=== PATIENT | female | born 2000 | race Caucasian/White ===

== ENCOUNTER 2023-11-12 20:12 | Emergency (ER) | payer OTHER, SELFPAY ==
[2023-11-12 20:44] VITALS: BP 121/74; PULSE 100; TEMP 38.8; O2SAT 96; BMI 46.2
--- NOTE | 2023-11-12 20:51 | XR_ITS ---
The [address] [address] Patient Name: NORBERTO ELIZABETH MRN: [id number] date: 2000 Sex: F Assigned Patient Location: ER Current Patient Location: ER Accession/Order Number: [id number] Exam Date: 11/12/2023 21:16 Report Date: 11/12/2023 21:52 At the request of: TENISHA BOONE Procedure: XR chest 1V CXR HISTORY: Shortness of breath. COMPARISON: None. TECHNIQUE: 1 view chest submitted for review. FINDINGS: Lines and tubes: None Lung volumes are adequately expanded. Bronchopulmonary markings are prominent. No pneumothorax. No effusion. The cardiac shadow measures within normal. Pulmonary vascularity is prominent. Osseous structures do not demonstrate any acute abnormality. XR/XR chest 1V IMPRESSION: Minimal prominence of interstitial markings in the lower lobes. Please correlate for pneumonia versus atelectasis. Electronically authenticated by: SUMAN TOM Date: 11/12/2023 21:52
--- NOTE | 2023-11-12 21:25 | ED.URI1 ---
HPI - URI/Sore Throat General Chief Complaint: Upper Respiratory Infection Stated Complaint: URTI COMPLAINTS Time Seen by Provider: 11/12/23 21:22 Source: patient Limitations: no limitations History of Present Illness HPI Narrative: presents complaining of cough and dyspnea. Cough is productive. Ill for past few days. Has a fever. more short of breath when coughing. Abdomen sore from coughing MD elicited complaint: Reports fever and cough Related Data Home Medications ?Medication ?Instructions ?Recorded ?Confirmed aripiprazole 10 mg tablet 10 mg PO QDAY 11/12/23 11/12/23 fluoxetine 20 mg capsule 40 mg PO QDAY 11/12/23 11/12/23 guanfacine 2 mg tablet 2 mg PO .qhs 11/12/23 11/12/23 topiramate 50 mg tablet 50 mg PO .qhs 11/12/23 11/12/23 Allergies Allergy/AdvReac Type Severity Reaction Status Date / Time No Known Drug Allergies Allergy Verified 11/12/23 20:41 Review of Systems ROS Status of ROS 10 or more systems reviewed and unremarkable except as noted in history and below Exam Constitutional Vital Signs, click to edit/add: Last Vital Signs Temp 101.9 F H 11/12/23 20:44 Pulse 90 11/12/23 22:13 Resp 18 11/12/23 22:13 BP 121/74 11/12/23 20:44 Pulse Ox 96 11/12/23 22:13 O2 Del Method Room Air 11/12/23 22:13 Common normals: no apparent distress, average body habitus, oriented x3, no limitations, healthy appearing, alert and well nourished [facility] Common normals: normocephalic and head/scalp atraumatic Respiratory Common normals: no retractions and no use of accessory muscles Other: mild rhonchi right chest Cardio Common normals: regular rate, regular rhythm, S1 normal heart sound and S2 normal heart sound GI Common normals: Normal to inspection, nondistended, normoactive bowel sounds present, soft to palpation and non-tender Extremity Common normals: normal to inspection and full ROM Neuro Common normals: oriented x3, moves all extremities and no focal motor deficits Psych Appearance: grossly normal Course Vital Signs Vital signs: Vital Signs Temperature 101.9 F H 11/12/23 20:44 Pulse Rate 100 H 11/12/23 20:44 Respiratory Rate 16 11/12/23 20:44 Blood Pressure 121/74 11/12/23 20:44 Pulse Oximetry 96 11/12/23 20:44 Oxygen Delivery Method Room Air 11/12/23 20:44 Temperature 101.9 F H 11/12/23 20:44 Pulse Rate 90 11/12/23 22:13 Respiratory Rate 18 11/12/23 22:13 Blood Pressure 121/74 11/12/23 20:44 Pulse Oximetry 96 11/12/23 22:13 Oxygen Delivery Method Room Air 11/12/23 22:13 MDM - URI/Sore Throat MDM Narrative Medical decision making narrative: patient presents with productive cough, dyspnea and fever. Has faint rhonchi right chest. cxray with ? pneumonia. COVID19 and influenza neg. Clinically suspect pneumonia given productive cough and fever in none smoker. Will plan to treat as CAP and have her follow up with her family doctor Lab Data Labs: Lab Results 11/12/23 11/12/23 Range/Units 20:55 21:57 WBC 6.2 (4.0-11.0) 10^3/uL RBC 4.68 (4.20-5.40) 10^6/uL Hgb 12.0 (12.0-16.0) g/dL Hct 37.5 (36.0-48.0) % MCV 80.1 L (81.0-99.0) fL MCH 25.6 L (26.7-34.0) pg MCHC 32.0 (29.9-35.2) g/dL RDW 13.3 (11.0-15.0) % Plt Count 260 (150-450) 10^3/uL MPV 9.7 (9.5-13.5) fL Neut % (Auto) 67.7 (43.0-75.0) % Lymph % (Auto) 20.2 L (20.5-60.0) % Curry % (Auto) 7.7 (1.7-12.0) % Eos % (Auto) 3.9 (0.9-7.0) % Baso % (Auto) 0.3 (0.2-2.0) % Neut # (Auto) 4.2 (1.4-6.5) 10^3/uL Lymph # (Auto) 1.3 (1.2-3.8) 10^3/uL Curry # (Auto) 0.5 (0.3-0.8) 10^3/uL Eos # (Auto) 0.2 (0.0-0.7) 10^3/uL Baso # (Auto) 0.0 (0.0-0.1) 10^3/uL Abs Immat Gran (auto) 0.01 (0.00-0.03) 10^3/uL Imm/Tot Granulo (auto) 0.2 (0.0-0.5) % Sodium 138 (136-145) mmol/L Potassium 3.8 (3.5-5.1) mmol/L Chloride 101 (98-107) mmol/L Carbon Dioxide 25.7 (21.0-32.0) mmol/L Anion Gap 15.1 BUN 12.0 (7.0-18.0) mg/dL Creatinine 0.76 (0.55-1.02) mg/dL Est GFR ( Amer) >60 (>=60) Est GFR (Non-Af Amer) >60 (>=60) BUN/Creatinine Ratio 15.8 Glucose 101 (74-106) mg/dL Lactate 0.7 (0.4-2.0) mmol/L Calcium 9.3 (8.5-10.1) mg/dL Influenza Type A Ag Negative Influenza Type B Ag Negative SARS-CoV-2 Ag (CV2AG) Negative (NEGATIVE) Imaging Data Chest x-ray: Radiologist's impression: ITS Impressions Chest X-Ray 11/12/23 20:51 IMPRESSION: Minimal prominence of interstitial markings in the lower lobes. Please correlate for pneumonia versus atelectasis. Electronically authenticated by: SUMAN TOM Date: 11/12/2023 21:52 Discharge Plan Discharge Stand Alone Forms: Portal Instructions Chief Complaint: Upper Respiratory Infection Clinical Impression: Pneumonia Patient Disposition: Home, Self-Care Prescriptions / Home Meds: No Action fluoxetine 20 mg capsule 40 mg PO QDAY aripiprazole 10 mg tablet 10 mg PO QDAY topiramate 50 mg tablet 50 mg PO .qhs guanfacine 2 mg tablet 2 mg PO .qhs Print Language: Kosovan Instructions: Community Acquired Pneumonia (ED) Additional Instructions: follow up with your family doctor next week Referrals: [facility] [Primary Care Provider] - 1 week Discharge Date/Time: 11/12/23 23:32
[2023-11-12 21:31] LABS: Influenza Virus A Antigen Negative; Influenza Virus B Antigen Negative; Internal Control Within Normal Limits; SARS-CoV-2 Ag NEGATIVE (NEGATIVE)
[2023-11-12] MEDS: 0.9 % SODIUM CHLORIDE 1,000 ML 999 ML IV (21:58)
[2023-11-12 22:13] VITALS: PULSE 90; O2SAT 96
[2023-11-12 22:13] LABS: Basophils Percent Auto 0.3 % (0.2-2.0); Eosinophils Absolute Auto 0.2 10^3/uL (0.0-0.7); Eosinophils Percent Auto 3.9 % (0.9-7.0); Hematocrit 37.5 % (36.0-48.0); Immature Granulocytes Abs Auto 0.01 10^3/uL (0.00-0.03); Immature Granulocytes Pct Auto 0.2 % (0.0-0.5); Lymphocytes Absolute Auto 1.3 10^3/uL (1.2-3.8); Lymphocytes Percent Auto 20.2 % (20.5-60.0); Mean Corpuscular Hemoglobin 25.6 pg (26.7-34.0); Mean Corpuscular Volume 80.1 fL (81.0-99.0); Mean Platelet Volume 9.7 fL (9.5-13.5); Monocytes Absolute Auto 0.5 10^3/uL (0.3-0.8); Monocytes Percent Auto 7.7 % (1.7-12.0); Neutrophils Absolute Auto 4.2 10^3/uL (1.4-6.5); Neutrophils Percent Auto 67.7 % (43.0-75.0); Platelet Count 260 10^3/uL (150-450); Red Blood Count 4.68 10^6/uL (4.20-5.40); Red Cell Distribution Width 13.3 % (11.0-15.0); White Blood Count 6.2 10^3/uL (4.0-11.0)
[2023-11-12] MEDS: ALBUTEROL SULFATE 2.5 MG/3 ML VIAL NEB IH (22:13)
[2023-11-12 22:25] LABS: Anion Gap 15.1; BUN Creatinine Ratio 15.8; Calcium 9.3 mg/dL (8.5-10.1); Carbon Dioxide 25.7 mmol/L (21.0-32.0); Chloride 101 mmol/L (98-107); Estimated GFR (African America >60 (>=60); Estimated GFR (Non-African Ame >60 (>=60); Glucose 101 mg/dL (74-106); Potassium 3.8 mmol/L (3.5-5.1); Sodium 138 mmol/L (136-145)
[2023-11-12 22:30] LABS: Lactate/Lactic Acid 0.7 mmol/L (0.4-2.0)
[2023-11-12] MEDS: AZITHROMYCIN 250 MG TABLET 500 MG PO (22:54)
[2023-11-12] MEDS: CEFTRIAXONE 1,000 MG in 0.9 % SODIUM CHLORIDE 50 ML 100 MG IV (22:55)
== END 2023-11-12 23:32 | disposition home or self-care (01) ==
PROVIDERS: Emergency Provider Internal Medicine
DX: J18.9 Pneumonia, unspecified organism (principal); Z79.899 Other long term (current) drug therapy; Z20.822 Contact with and (suspected) exposure to COVID-19
CPT/HCPCS: 36415; 71045; 80048; 83605; 85025; 87804; 87811; 94640; 96365; 99285

== ENCOUNTER 2024-01-24 20:52 | Emergency (ER) | payer OTHER, SELFPAY ==
[2024-01-24 21:03] VITALS: BP 129/88; PULSE 107; TEMP 37.3; O2SAT 97; BMI 45.6
--- OUTSIDE RECORDS SUMMARY | 2024-01-24 21:05 | XMS_ITS | CCD ---
Author Organization [facility] Care Team Providers Care Drop Wire Aliner Name Role Phone NO PCP, NO PCP Primary Care Unavailable NO PCP, NO PCP Primary Care Unavailable SHELLEY CAMARILLO Attending Unavailable NO PCP, NO PCP Primary Care Unavailable NO PCP, NO PCP Primary Care Unavailable JOSE BRANTLEY Attending Unavailable NO PCP, NO PCP Primary Care Unavailable ATIF SEGURA Attending Unavailab ATIF Griffin Attending Unavailab ATIF Griffin Referring Unavailab le NO PCP, NO PCP Primary Care Unavailable Odessa SOLANO, Geronimo Dewitt Attending Unavailable Pavithra Kirby Attending Unavailable Odessa SOLANO, Geronimo Dewitt Attending Unavailable Pavithra Kirby Attending Unavailable Pavithra Kirby Attending Unavailable Odessa SOLANO, Geronimo Dewitt Attending Unavailable Pavithra Kirby Attending Unavailable Odessa SOLANO, Geronimo Dewitt Attending Unavailable Pavithra Kirby Attending Unavailable Odessa SOLANO, Geronimo Dewitt Attending Unavailable Pavithra Kirby Attending Unavailable Pavithra Kirby Attending Unavailable Odessa SOLANO, Geronimo Dewitt Attending Unavailable Pavithra Kirby Attending Unavailable Pavithra Kirby Attending Unavailable Odessa SOLANO, Geronimo Dewitt Attending Unavailable Pavithra Kirby Attending Unavailable Pavithra Kirby Attending Unavailable Pavithra Kirby Attending Unavailable Odessa SOLANO, Geronimo Dewitt Attending Unavailable Odessa SOLANO, Geronimo Dewitt Attending Unavailable Problems Active Problems Problem Classification Problem Date Documented Da te Episodic/Chronic Anxiety disorders (2 sources) Anxiety disorder, unspecified; Translations: [Mental health problem] Onset: 09-07-2023 Chronic Headache; including migraine (1 source) Headache Onset: 11-09-2023 Episodic Other connective tissue disease (1 source) Foot pain Onset: 12-09-2023 Episodic Other connective tissue disease (1 source) Myalgia, unspecified site; Translations: [Myalgia, unspecified site] Onset: 11-09-2023 Episodic Other female genital disorders (1 source) Abnormal uterine and vaginal bleeding, unspecified; Translations: [Abnormal uterine and vaginal bleeding, unspecified] Onset: 08-24-2023 Chronic Other female genital disorders (1 source) Vaginal bleeding Onset: 08-24-2023 Chronic Residual codes; unclassified (1 source) Pain, unspecified; Translations: [Pain, unspecified] Onset: 12-09-2023 Episodic Sprains and strains (1 source) Strain of unspecified muscle and tendon at ankle and foot level, left foot, initial encounter; Translations: [Strain of unspecified muscle and tendon at ankle and foot level, left foot, initial encounter] Onset: 12-09-2023 Episodic Unclassified (1 source) Generalized Body Aches Onset: 11-09-2023 Unclassified (1 source) Mental Health Issue Onset: 09-07-2023 Past or Other Problems Problem Classification Problem Date Documented Da te Episodic/Chronic Nausea and vomiting (2 sources) Nausea with vomiting, unspecified; Translations: [Vomiting] Onset: 08-26-2023 Episodic Results Test Name Value Interpretation Reference Range Facility HCG ( test) Ql (U)o n 11-09-2023 Beta HCG ( test) Ql (U) Negative Normal NEG [facility] Comment on above: Performed By: #### 2 106-3 #### [facility] ([id number]) [address] [place] [address] 70343 URN MACROSCOPIC NURon 2023 BILIRUBIN JAZMYN Negative Normal NEG [facility] Comment on above: Performed By: #### N UM #### [facility] ([id number]) [address] [place] [address] 68065 BLOOD/HGB JAZMYN Negative Normal NEG [facility] Comment on above: Performed By: #### N UM #### [facility] ([id number]) [address] [place] [address] 03254 GLUCOSE JAZMYN Negative Normal NEG [facility] Comment on above: Performed By: #### N UM #### [facility] ([id number]) [address] [place] [address] [place] [address] KETONES JAZMYN Negative Normal NEG [facility] Comment on above: Performed By: #### N UM #### [facility] ([id number]) [address] [place] [address] [place] [address] LEUKOCYTE ESTERASE JAZMYN Negative Normal NEG [facility] Comment on above: Performed By: #### N UM #### [facility] ([id number]) [address] [place] [address] 73524 NITRITE JAZMYN Negative Normal NEG [facility] Comment on above: Performed By: #### N UM #### [facility] ([id number]) [address] [place] [address] 14463 PH JAZMYN 8.5 Normal 5.0-8.5 [facility] Comment on above: Performed By: #### N UM #### [facility] ([id number]) [address] [place] [address] 12459 PROTEIN JAZMYN Negative Normal NEG [facility] Comment on above: Performed By: #### N UM #### [facility] ([id number]) [address] [place] [address] 08685 SPECIFIC GRAVITY JAZMYN 1.020 Normal 1.003-1.035 [facility] Comment on above: Performed By: #### N UM #### [facility] ([id number]) [address] [place] [address] 87973 UROBILINOGEN JAZMYN 0.2 eu/dL Normal <1.1 [facility] Comment on above: Performed By: #### N UM #### [facility] ([id number]) [address] [place] [address] [place] [address] BASIC METABOLIC PANLon 08-26 Anion gap [Moles/Vol] 9 mmol/L Normal 5-15 [facility] Comment on above: Performed By: #### B MP #### [facility] ([id number]) [address] [place] [address] 94575 Calcium [Mass/Vol] 8.5 mg/dL Normal 8.5-10.5 [facility] Comment on above: Performed By: #### B MP #### [facility] ([id number]) [address] [place] [address] 37605 Chloride [Moles/Vol] 102 mmol/L Normal 98-109 [facility] Comment on above: Performed By: #### B MP #### [facility] ([id number]) [address] [place] [address] 84941 CO2 [Moles/Vol] 25 mmol/L Normal 22-32 [facility] Comment on above: Performed By: #### B MP #### [facility] ([id number]) [address] [place] [address] 25212 Creatinine [Mass/Vol] 0.70 mg/dL Normal 0.40-1.00 [facility] Comment on above: Result Comment: METH OD TRACEABLE TO IDMS STANDARD Performed By: #### B MP #### [facility] ([id number]) [address] [place] [address] 87228 eGFR (CKD-EPI) NON-RACE DEPENDENT >90 Normal >59 [facility] Comment on above: Result Comment: Reported eGFR is based on the CKD-EPI 2020 equation that does not use a race coefficient. Performed By: #### B MP #### [facility] ([id number]) [address] [place] [address] 59508 Glucose [Mass/Vol] 128 mg/dL High 65-99 [facility] Comment on above: Performed By: #### B MP #### [facility] ([id number]) [address] [place] [address] 34167 Potassium [Moles/Vol] 3.8 mmol/L Normal 3.5-5.0 [facility] Comment on above: Performed By: #### B MP #### [facility] ([id number]) [address] [place] [address] 57654 Sodium [Moles/Vol] 136 mmol/L Normal 134-146 [facility] Comment on above: Performed By: #### B MP #### [facility] ([id number]) [address] [place] [address] 25593 Urea nitrogen [Mass/Vol] 13 mg/dL Normal 5-23 [facility] Comment on above: Performed By: #### B MP #### [facility] ([id number]) [address] [place] [address] 92009 DRUG SCREEN, URINEon 024 AMPHETAMINE/METHAMP Negative Normal NEG [facility] Comment on above: Result Comment: AMPH /METH screening cut off = 1000 ng/mL Performed By: #### D PENN #### [facility] ([id number]) [address] [place] [address] 55169 BARBITURATES Negative Normal NEG [facility] Comment on above: Result Comment: Yuliana iturates screening cut off value = 200 ng/mL Performed By: #### D PENN #### [facility] ([id number]) [address] [place] [address] 91358 BENZODIAZEPINES Negative Normal NEG [facility] Comment on above: Result Comment: Phuc odiazepines screening cut off value = 200 ng/mL Performed By: #### D PENN #### [facility] ([id number]) [address] [place] [address] 32074 CANNABINOIDS Positive Abnormal NEG [facility] Comment on above: Result Comment: Conf irmation available upon request. Cannabinoids/THC screening cut off value = 50 ng/mL Performed By: #### D PENN #### [facility] ([id number]) [address] [place] [address] 81228 COCAINE METABOLITE Negative Normal NEG [facility] Comment on above: Result Comment: Coca ine screening cut off value = 300 ng/mL Performed By: #### D PENN #### [facility] ([id number]) [address] [place] [address] 14055 ECSTASY Negative Normal NEG [facility] Comment on above: Result Comment: Ecst asy screening cut off value = 500 ng/mL This report is intended for use in clinical monitoring or management of patients. Performed By: #### D PENN #### [facility] ([id number]) [address] [place] [address] 07466 METHADONE Negative Normal [facility] Comment on above: Result Comment: Meth adone screening cut off value = 300 ng/mL. Performed By: #### D PENN #### [facility] ([id number]) [address] [place] [address] 40356 OPIATES Negative Normal [facility] Comment on above: Result Comment: Opia mayte screening cut off value = 300 ng/mL NOTE: This test is used for the detection of codeine, hydrocodone (>1000 ng/mL), morphine and hydromorphone (>900 ng/mL) in urine. Performed By: #### D PENN #### [facility] ([id number]) [address] [place] [address] 63355 OXYCODONE Negative Normal [facility] Comment on above: Result Comment: Oxyc odone screening cut off value = 300 ng/mL NOTE: This test is used for the detection of oxycodone and oxymorphone in urine. Performed By: #### D PENN #### [facility] ([id number]) [address] [place], [place] [id number] PHENCYCLIDINE Negative Normal NEG [facility] Comment on above: Result Comment: Phen cyclidine screening cut off value = 25 ng/mL Performed By: #### D PENN #### [facility] ([id number]) [address] [place] [address] HCG ( test) Ql (U)o n 08-26-2023 Beta HCG ( test) Ql (U) Negative Normal NEG [facility] Comment on above: Performed By: #### 2 106-3 #### [facility] ([id number]) [address] [place] [address] SARS/FLU A+B/RSV by NAAT/Mol ecularon 08-26-2023 SARS/FLU A+B/RSV by NAAT/Molecular FLU A PCR Negative (qualifier value) FLU B PCR Negative (qualifier value) RSV by PCR Negative (qualifier value) SARS CoV 2 Not detected (qualifier value) NOTE The Xpert Xpress SARS-CoV-2/Flu/RSV Plus test is a rapid, multiplexed real-time RT-PCR test intended for the simultaneous qualitative detection and differentiation of SARS-CoV-2, influenza A, influenza B and respiratory syncytial virus (RSV) viral RNA from individuals suspected of respiratory viral infection consistent with COVID-19 by their healthcare provider. This test has not been validated in asymptomatic patients. The Xpert Xpress SARS-CoV-2 test is intended for use by qualified and trained operators who are performing tests using either [employer] or [employer] systems and is limited to laboratories that meet the CLIA requirements to perform high and moderate complexity tests. The Xpert Xpress SARS-CoV-2/Flu/RSV Plus is only for use under the Food and Drug Administration's Emergency Use Authorization. Results are for the simultaneous detection and differentiation of SARS-CoV-2, influenza A, influenza B and RSV nucleic acids in clinical specimens. SARS-CoV-2, influenza A, influenza B and RSV RNA identified by this test are generally detectable in upper respiratory samples during the acute phase of infection. Positive results are indicative of the presence of the identified virus, but do not rule out bacterial infection or co-infection with other pathogens not detected by this test. Clinical correlation with patient history and other diagnostic information is necessary to determine patient infection status. The agent detected may not be the definite cause of disease. Negative results do not preclude SARS-CoV-2, influenza A, influenza B and RSV infection and should not be used as the sole basis for treatment or other patient management decisions. Negative results must be combined with clinical observations, patient history and epidemiological information. An Invalid result may occur with specimen-associated inhibition unable to be resolved with specimen repeat. Fact Sheet for Healthcare Providers: https://www.fda.gov/m edia/370875/download Fact Sheet for Patients: https://www.fda.gov/m edia/288908/download Normal [facility] Comment on above: Performed By: #### C OVFLR #### [facility] ([id number]) [address] [place] [address] 12892 URN MACROSCOPIC NURon 2023 BILIRUBIN JAZMYN Negative Normal [facility] Comment on above: Performed By: #### N UM #### [facility] ([id number]) [address] [place] [address] 36307 BLOOD/HGB JAZMYN Trace Abnormal [facility] Comment on above: Performed By: #### N UM #### [facility] ([id number]) [address] [place] [address] 67091 GLUCOSE JAZMYN Negative Normal NEG [facility] Comment on above: Performed By: #### N UM #### [facility] ([id number]) [address] [place] [address] 94102 KETONES JAZMYN 15 mg/dL Abnormal NEG [facility] Comment on above: Performed By: #### N UM #### [facility] ([id number]) [address] [place] [address] 14059 LEUKOCYTE ESTERASE JAZMYN Negative Normal [facility] Comment on above: Performed By: #### N UM #### [facility] ([id number]) [address] [place] [address] 39326 NITRITE JAZMYN Negative Normal NEG [facility] Comment on above: Performed By: #### N UM #### [facility] ([id number]) [address] [place] [address] 24812 PH JZAMYN 7.0 Normal 5.0-8.5 [facility] Comment on above: Performed By: #### N UM #### [facility] ([id number]) [address] [place] [address] 85292 PROTEIN JAZMYN 100 mg/dL Abnormal NEG [facility] Comment on above: Performed By: #### N UM #### [facility] ([id number]) [address] [place] [address] 35150 SPECIFIC GRAVITY JAZMYN 1.020 Normal 1.003-1.035 [facility] Comment on above: Performed By: #### N UM #### [facility] ([id number]) [address] [place] [address] 72147 UROBILINOGEN JAZMYN 1.0 eu/dL Normal <1.1 [facility] Comment on above: Performed By: #### N UM #### [facility] ([id number]) [address] [place] [address] 50225 BASIC METABOLIC PANLon 08-24 Anion gap [Moles/Vol] 7 mmol/L Normal 5-15 [facility] Comment on above: Performed By: #### C BCA, BMP #### [facility] ([id number]) [address] [place] [address] 89420 Calcium [Mass/Vol] 8.7 mg/dL Normal 8.5-10.5 [facility] Comment on above: Performed By: #### C BCA, BMP #### [facility] ([id number]) [address] [place] [address] 15056 Chloride [Moles/Vol] 103 mmol/L Normal 98-109 [facility] Comment on above: Performed By: #### C RADHA, BMP #### [facility] ([id number]) [address] [place] [address] 51523 CO2 [Moles/Vol] 24 mmol/L Normal 22-32 [facility] Comment on above: Performed By: #### C RADHA, BMP #### [facility] ([id number]) [address] [place] [address] 21852 Creatinine [Mass/Vol] 0.53 mg/dL Normal 0.40-1.00 [facility] Comment on above: Result Comment: METH OD TRACEABLE TO IDMS STANDARD Performed By: #### C RADHA, BMP #### [facility] ([id number]) [address] [place] [address] 73217 eGFR (CKD-EPI) NON-RACE DEPENDENT >90 Normal >59 [facility] Comment on above: Result Comment: Reported eGFR is based on the CKD-EPI 2020 equation that does not use a race coefficient. Performed By: #### C RADHA, BMP #### [facility] ([id number]) [address] [place] [address] 91294 Glucose [Mass/Vol] 87 mg/dL Normal 65-99 [facility] Comment on above: Performed By: #### C RADHA, BMP #### [facility] ([id number]) [address] [place] [address] 28970 Potassium [Moles/Vol] 3.5 mmol/L Normal 3.5-5.0 [facility] Comment on above: Performed By: #### C BCA, BMP #### [facility] ([id number]) [address] [place] [address] 32323 Sodium [Moles/Vol] 134 mmol/L Normal 134-146 [facility] Comment on above: Performed By: #### C BCA, BMP #### [facility] ([id number]) [address] [place] [address] 56620 Urea nitrogen [Mass/Vol] 12 mg/dL Normal 5-23 [facility] Comment on above: Performed By: #### C RADHA, BMP #### [facility] ([id number]) [address] [place] [address] 09786 CBC AND AUTO DIFFon 08-24-19 24 ABSOLUTE BASOPHIL 0.0 X10E9/L Normal 0.0-0.2 [facility] Comment on above: Performed By: #### C RADHA, BMP #### [facility] ([id number]) [address] [place] [address] 88178 ABSOLUTE NEUTROPHIL 4.2 X10E9/L Normal 1.5-6.6 [facility] Comment on above: Performed By: #### Leny GARCIA, BMP #### [facility] ([id number]) [address] [place] [address] 70772 Basophils/100 WBC (Bld) 0.6 % Normal [facility] Comment on above: Performed By: #### Leny GARCIA, BMP #### [facility] ([id number]) [address] [place] [address] 72406 Eosinophils (Bld) [#/Vol] 0.1 10*3/uL Normal 0.0-0.4 [facility] Comment on above: Performed By: #### Leny GARCIA, BMP #### [facility] ([id number]) [address] [place] [address] 33146 Eosinophils/100 WBC (Bld) 2.1 % Normal [facility] Comment on above: Performed By: #### Leny GARCIA, BMP #### [facility] ([id number]) [address] [place] [address] 29541 Erythrocyte distribution width (RBC) [Ratio] 14.4 % Normal 11.5-15.0 [facility] Comment on above: Performed By: #### C BCA, BMP #### [facility] ([id number]) [address] [place] [address] 19476 Hematocrit (Bld) [Volume fraction] 38.0 % Normal 35-47 [facility] Comment on above: Performed By: #### C BCA, BMP #### [facility] ([id number]) [address] [place] [address] 38406 Hemoglobin (Bld) [Mass/Vol] 13.3 g/dL Normal 11.7-15.5 [facility] Comment on above: Performed By: #### C RADHA, BMP #### [facility] ([id number]) [address] [place] [address] 62425 Lymphocytes (Bld) [#/Vol] 1.6 10*3/uL Normal 1.0-3.5 [facility] Comment on above: Performed By: #### C RADHA, BMP #### [facility] ([id number]) [address] [place] [address] 02346 Lymphocytes/100 WBC (Bld) 24.6 % Normal [facility] Comment on above: Performed By: #### C RADHA, BMP #### [facility] ([id number]) [address] [place] [address] 02441 MCH (RBC) [Entitic mass] 26.7 pg Low 27-34 [facility] Comment on above: Performed By: #### C BCA, BMP #### [facility] ([id number]) [address] [place] [address] 44904 MCHC (RBC) [Mass/Vol] 35.1 g/dL Normal 32-36 [facility] Comment on above: Performed By: #### C BCA, BMP #### [facility] ([id number]) [address] [place] [address] 42616 MCV (RBC) [Entitic vol] 76 fL Low 80-100 [facility] Comment on above: Performed By: #### C RADHA, BMP #### [facility] ([id number]) [address] [place] [address] 51965 Monocytes (Bld) [#/Vol] 0.4 10*3/uL Normal 0-0.9 [facility] Comment on above: Performed By: #### C RADHA, BMP #### [facility] ([id number]) [address] [place] [address] 54077 Monocytes/100 WBC (Bld) 6.8 % Normal [facility] Comment on above: Performed By: #### C RADHA, BMP #### [facility] ([id number]) [address] [place] [address] 92058 Neutrophils/100 WBC (Bld) 65.9 % Normal [facility] Comment on above: Performed By: #### C RADHA, BMP #### [facility] ([id number]) [address] [place] [address] 97488 Platelet mean volume (Bld) [Entitic vol] 8.0 fL Normal 7-12 [facility] Comment on above: Performed By: #### C RADHA, BMP #### [facility] ([id number]) [address] [place] [address] 93035 Platelets (Bld) [#/Vol] 291 10*3/uL Normal 150-450 [facility] Comment on above: Performed By: #### C RADHA, BMP #### [facility] ([id number]) [address] [place] [address] 78525 RBC COUNT 4.99 X10E12/L Normal 3.80-5.20 [facility] Comment on above: Performed By: #### C RADHA, BMP #### [facility] ([id number]) [address] [place] [address] 87621 WBC (Bld) [#/Vol] 6.4 10*3/uL Normal 4.0-11.0 [facility] Comment on above: Performed By: #### C BCA, BMP #### [facility] ([id number]) [address] [place] [address] 53660 HCG ( test) Ql (U)o n 08-24-2023 Beta HCG ( test) Ql (U) Negative Normal NEG [facility] Comment on above: Performed By: #### 2 106-3 #### [facility] ([id number]) [address] [place] [address] 64776 URN MACROSCOPIC NURon 2023 BILIRUBIN JAZMYN Negative Normal [facility] Comment on above: Performed By: #### N UM #### [facility] ([id number]) [address] [place] [address] 26155 BLOOD/HGB JAZMYN Trace Abnormal NEG [facility] Comment on above: Performed By: #### N UM #### [facility] ([id number]) [address] [place] [address] 69940 GLUCOSE JAZMYN Negative Normal [facility] Comment on above: Performed By: #### N UM #### [facility] ([id number]) [address] [place] [address] 63011 KETONES JAZMYN Negative Normal NEG [facility] Comment on above: Performed By: #### N UM #### [facility] ([id number]) [address] [place] [address] 54725 LEUKOCYTE ESTERASE JAZMYN Negative Normal [facility] Comment on above: Performed By: #### N UM #### [facility] ([id number]) [address] [place] [address] 11621 NITRITE JAZMYN Negative Normal [facility] Comment on above: Performed By: #### N UM #### [facility] ([id number]) [address] [place] [address] 44573 PH JAZMYN 6.0 Normal 5.0-8.5 [facility] Comment on above: Performed By: #### N UM #### [facility] ([id number]) [address] [place] [address] 22746 PROTEIN JAZMYN Trace Abnormal NEG [facility] Comment on above: Performed By: #### N UM #### [facility] ([id number]) [address] [place] [address] 15639 SPECIFIC GRAVITY JAZMYN 1.025 Normal 1.003-1.035 [facility] Comment on above: Performed By: #### N UM #### [facility] ([id number]) [address] [place] [address] 30009 UROBILINOGEN JAZMYN 0.2 eu/dL Normal <1.1 [facility] Comment on above: Performed By: #### N UM #### [facility] ([id number]) [address] [place] [address] 70973 Encounters Encounter Date Encounter Type Care Provider Facility Start: 02-20-2024 ambulatory Pavithra Emerine HOURLY CAREGIVER Fac ility:[facility] Start: 02-06-2024 ambulatory Geronimo Saxena MD Facility:[facility] Start: 01-30-2024 ambulatory Pavithra Emerine HOURLY CAREGIVER Fac ility:[facility] Start: 12-12-2023 ambulatory Pavithra Emerine HOURLY CAREGIVER Fac ility:[facility] Start: 12-09-2023 End: 12-10-2023 Emergency department patient visit ATIF SEGURA [facility] Start: 11-25-2023 End: 11-25-2023 ambulatory Geronimo Saxena MD Facility:[facility] Start: 11-09-2023 End: 11-09-2023 Emergency department patient visit NO PCP NO PCP [facility] Start: 11-08-2023 End: 11-08-2023 ambulatory Pavithra Emerine HOURLY CAREGIVER Facility:[facility] Start: 10-14-2023 End: 10-14-2023 ambulatory Geronimo Saxena MD Facility:[facility] Start: 10-03-2023 End: 10-03-2023 ambulatory Pavithra Emerine [employer]GIVER Facility:[facility] Start: 09-07-2023 End: 09-07-2023 Emergency department patient visit NO PCP NO PCP [facility] Start: 08-26-2023 End: 08-27-2023 Emergency department patient visit NO PCP NO PCP [facility] Start: 08-25-2023 ambulatory Geronimo Saxena MD Facility:[facility] Start: 08-24-2023 End: 08-24-2023 Emergency department patient visit NO PCP NO PCP [facility] Start: 08-01-2023 End: 08-01-2023 ambulatory Pavithra Emerine HOU[employer] C[employer]GIVER Facility:[facility] Start: 06-24-2023 End: 06-24-2023 ambulatory Geronimo Saxena MD Facility:[facility] Start: 05-25-2023 ambulatory Geronimo Saxena MD Facility:[facility] Start: 05-24-2023 End: 05-24-2023 ambulatory Pavithra Emerine HOU[employer]Y C[employer]GIVER Facility:[facility] Start: 05-02-2023 ambulatory Pavithra Emerine HOURLY CAREGIVER Fac ility:[facility] Start: 04-25-2023 End: 04-25-2023 ambulatory Geronimo Saxena MD Facility:[facility] Start: 04-11-2023 End: 04-11-2023 ambulatory Pavithra Emerine HOU[employer]Y CAREGIVER Facility:[facility] Start: 03-15-2023 End: 03-15-2023 ambulatory Geronimo Saxena MD Facility:[facility] Start: 03-07-2023 End: 03-07-2023 ambulatory Pavithra Emerine HOU[employer]Y C[employer]GIVER Facility:[facility] Start: 02-14-2023 ambulatory Pavithra Emerine HOU[employer]Y CAREGIVER Fac ility:[facility] Start: 01-18-2023 End: 01-18-2023 ambulatory Pavithra Emerine [employer] C[employer]GIVER Facility:[facility] Start: 01-12-2023 End: 01-12-2023 ambulatory Geronimo Saxena MD Facility:[facility] Payers Date Payer Category Payer Unknown 2020 Medicaid [id number] 2000 Unknown [id number] 2.16.8 [id number] 2000 Unknown [id number] 2.16.8 40.1.525329.3.579.2.128 2000 Unknown [id number] 2.16.8 40.1.037367.3.579.2.1285 2000 Unknown [id number] 2.16.8 40.1.412368.3.579.2.1285 2000 Unknown [id number] 2.16.8 40.1.275021.3.579.2.1285 2000 Unknown [id number] 2.16.8 40.1.153149.3.579.2.1286 2000 Unknown [id number] 2.16. 840.1.075367.3.579.2. 2000 Unknown [id number] 2.16. 840.1.341771.3.579.2. 2000 Unknown [id number] 2.16. 840.1.690594.3.579.2. 2000 Unknown [id number] 2.16. 840.1.274748.3.579.2.196 2000 Unknown [id number] 2.16. 840.1.097098.3.579.2.196 2000 Unknown [id number] 2.16. 840.1.156769.3.579.2.196 2000 Unknown [id number] 2.16. 840.1.648404.3.579.2.196 2000 Unknown [id number] 2.16. 840.1.818870.3.579.2.196 2000 Unknown [id number] 2.16. 840.1.934989.3.579.2.196 2000 Unknown [id number] 2.16. 840.1.396034.3.579.2.196 2000 Unknown [id number] 2.16. 840.1.220146.3.579.2. 2000 Unknown [id number] 2.16. 840.1.528447.3.579.2.196 2000 Unknown [id number] 2.16. 840.1.689304.3.579.2.196 2000 Unknown [id number] 2.16. 840.1.634046.3.579.2. 2000 Unknown [id number] 2.16. 840.1.534924.3.579.2. 2000 Unknown [id number] 2.16. 840.1.205408.3.579.2.196 2000 Unknown [id number] 2.16. 840.1.319446.3.579.2.196 2000 Unknown [id number] 2.16. 840.1.816697.3.579.2.196 2000 Unknown [id number] 2.16. 840.1.126156.3.579.2. 2000 Unknown [id number] 2.16. 840.1.531329.3.579.2.196 2000 Unknown [id number] 2.16. 840.1.945048.3.579.2. Clinical Note 12-09-2023 Note Date & Type Note Facility 12-09-2023 Note XR FOOT LT MIN 3 VWS Procedure: Left foot radiographs performed Number of views:3 History:Pain Comparison:None Findings: There is no fracture, dislocation, or destructive lesion. Impression: No acute findings. Finalized by Tabitha Baker DO on 12/09/2023 12:33 PM [facility] Summary Purpose Family History No Family History Records FoundNo Family History Records Found Advance Directives No Advanced Directives Records FoundNo Advanced Directives Records Found Additional Source Comments INFORMATION SOURCE (unrecogn ized section and content) DATE CREATED AUTHOR 12/10/2023 [facility] DATE CREATED AUTHOR AUTHOR'S FEMI MENDOSA 01/04/2024 [facility] FOR RECORDS PERTAINING TO PATIENTS WHO ARE OR HAVE BEEN ENROLLED IN A CHEMICAL DEPENDENCY/SUBSTANCEABUSE PROGRAM, SOME INFORMATION MAY BE OMITTED. This clinical summary was aggregated from multiple sources. Caution should be exercised in using it in the provision of clinical care. This summary normalizes information from multiple sources, and as a consequence, information in this document may materially change the coding, format and clinical context of patient data. In addition, data may be omitted in some cases. CLINICAL DECISIONS SHOULD BE BASED ON THE PRIMARY CLINICAL RECORDS. [facility]. provides no warranty or guarantee of the accuracy or completeness of information in this document.
--- NOTE | 2024-01-24 21:18 | XR_ITS ---
The [address] [address] Patient Name: NORBERTO ELIZABETH MRN: [id number] date: 2000 Sex: F Assigned Patient Location: ER Current Patient Location: ER Accession/Order Number: [id number] Exam Date: 01/24/2024 21:24 Report Date: 01/24/2024 22:22 At the request of: AUDIE BHATT Procedure: XR chest 2V EXAM: XR chest 2V HISTORY: cough COMPARISON: None. TECHNIQUE: Frontal and lateral views of the chest. FINDINGS: No focal consolidations or pleural effusions. Cardiomediastinal silhouette is unremarkable. Visualized osseous structures are unremarkable. XR/XR chest 2V IMPRESSION: No acute disease. Electronically authenticated by: GIOVANI HEATH Date: 01/24/2024 22:22
--- NOTE | 2024-01-24 22:41 | ED.GENADUL1 ---
HPI HPI - General Adult General Chief complaint: Upper Respiratory Infection Stated complaint: Cough Time Seen by Provider: 01/24/24 21:17 Source: patient Mode of arrival: walk-in Limitations: no limitations History of Present Illness HPI narrative: 23-year-old female to the emergency department chief complaint of nasal congestion, cough, sore throat. Symptoms began 2 days ago. She reports last time this happened she had pneumonia. She denies . Related Data Home Medications ?Medication ?Instructions ?Recorded ?Confirmed aripiprazole 10 mg tablet 10 mg PO QDAY 11/12/23 11/12/23 fluoxetine 20 mg capsule 40 mg PO QDAY 11/12/23 11/12/23 guanfacine 2 mg tablet 2 mg PO .qhs 11/12/23 11/12/23 topiramate 50 mg tablet 50 mg PO .qhs 11/12/23 11/12/23 Previous Rx's ?Medication ?Instructions ?Recorded yemumggvlspwpoy-ckktnaxidtdnixb-RX 5 ml PO Q6H PRN cold symptoms #118 01/24/24 2 mg-30 mg-10 mg/5 mL oral syrup mL (Bromfed DM) Allergies Allergy/AdvReac Type Severity Reaction Status Date / Time No Known Drug Allergies Allergy Verified 11/12/23 20:41 Opioid HPI Opioid Management Most Recent Opioid Data: No Data to Display Review of Systems ROS Status of ROS 10 or more systems reviewed and unremarkable except as noted in history and below Exam Narrative Exam Narrative: VITALS: I have reviewed the triage vital signs. GENERAL: Well developed, well appearing adult in no acute distress. NEURO: Alert and oriented. Moves all extremities. Face is symmetric and expressive. EYES: PERRL. No scleral icterus or conjunctival injection. No discharge. HENT: Normocephalic, atraumatic. Hearing is grossly intact. Nares grossly patent and without discharge. Mucous membranes moist. NECK: No JVD. Patient moves neck without restriction. CARDIO: Rhythm regular. Normal rate. No murmur, rub, or gallop. Pulses equal bilaterally in the upper and lower extremity. No lower extremity edema. PULM: Lungs clear to auscultation in all helms. No wheezes, rales, or rhonchi. No conversational dyspnea. No splinting, stridor, or accessory muscle use. GI/: Abdomen is soft and non-tender. Normoactive bowel sounds. EXTREMITIES: Symmetric muscle bulk. No joint swelling. No clubbing, cyanosis, or deformity. SKIN: Warm and dry. Normal turgor. No rash or lesions appreciated. PSYCH: Mood, affect, and interaction is appropriate to the setting. Constitutional Vital Signs, click to edit/add: Last Vital Signs Temp 99.2 F 01/24/24 21:03 Pulse 107 H 01/24/24 21:03 Resp 17 01/24/24 21:03 BP 129/88 01/24/24 21:03 Pulse Ox 97 01/24/24 21:03 O2 Del Method Room Air 01/24/24 21:03 Course Vital Signs Vital signs: Vital Signs Temperature 99.2 F 01/24/24 21:03 Pulse Rate 107 H 01/24/24 21:03 Respiratory Rate 17 01/24/24 21:03 Blood Pressure 129/88 01/24/24 21:03 Pulse Oximetry 97 01/24/24 21:03 Oxygen Delivery Method Room Air 01/24/24 21:03 Temperature 99.2 F 01/24/24 21:03 Pulse Rate 107 H 01/24/24 21:03 Respiratory Rate 17 01/24/24 21:03 Blood Pressure 129/88 01/24/24 21:03 Pulse Oximetry 97 01/24/24 21:03 Oxygen Delivery Method Room Air 01/24/24 21:03 Medical Decision Making MDM Narrative Medical decision making narrative: Well-appearing 23-year-old female to the emergency department chief complaint of URI symptoms. Vital stable, the patient is afebrile. She denies , declines test. Her lungs are clear. There is benefit discussion with patient about the chest x-ray, she would like chest x-ray to rule out pneumonia. Chest x-ray without acute findings. Bromfed as prescribed. Follow-up with PCP. Return precautions were discussed. All questions were answered. The patient was discharged home Medical Records Medical records reviewed: Yes I reviewed the patient's medical records Lab Data Lab results reviewed: Yes I reviewed the patient's lab results Imaging Data Chest x-ray: Radiologist's impression: ITS Impressions Chest X-Ray 01/24/24 21:18 IMPRESSION: No acute disease. Electronically authenticated by: GIOVANI HEATH Date: 01/24/2024 22:22 Discharge Plan Discharge Stand Alone Forms: Portal Instructions Chief Complaint: Upper Respiratory Infection Clinical Impression: Upper respiratory infection Patient Disposition: Home, Self-Care Time of Disposition Decision: 22:37 Condition: Good Mode of Transportation: Private Vehicle Prescriptions / Home Meds: New vprjubdmstluezu-bnfqxaouz-UE [Bromfed DM] 2-30-10 mg/5 mL syrup 5 ml PO Q6H PRN (Reason: cold symptoms) Qty: 118 0RF No Action fluoxetine 20 mg capsule 40 mg PO QDAY aripiprazole 10 mg tablet 10 mg PO QDAY topiramate 50 mg tablet 50 mg PO .qhs guanfacine 2 mg tablet 2 mg PO .qhs Print Language: Lithuanian Instructions: Upper Respiratory Infection (ED) Additional Instructions: Call the office of your primary care doctor to arrange for follow-up within the above-stated timeframe. Your ED visit was focused on your acute issue and does not replace primary care. You should review your labs, imaging, and diagnoses from this ED visit with your primary care physician. There may be non-emergent/ incidental findings that need further evaluation. You should review your vital signs including blood pressure with your PCP. If you were prescribed medications you should discuss possible side-effects and drug interactions with your pharmacist. Call 911 or go to the nearest Emergency Department if you develop any new or worsening symptoms. Seek immediate medical attention if you develop: worsening shortness of breath, difficulty breathing, chest pain, nausea, vomiting, weakness, numbness, tingling, excessive sweating, loss of motion in your arms or legs, or any new or worsening symptoms. Referrals: [facility] [Primary Care Provider] - 1 week
[2024-01-24 22:49] VITALS: BP 154/86; PULSE 101; O2SAT 97
== END 2024-01-24 22:50 | disposition home or self-care (01) ==
PROVIDERS: Emergency Provider Student in an Organized Health Care Education/Training Program
DX: J06.9 Acute upper respiratory infection, unspecified (principal)
CPT/HCPCS: 71046; 99283

== ENCOUNTER 2024-11-07 18:12 | Emergency (ER) | payer OTHER, SELFPAY ==
[2024-11-07 18:30] VITALS: BP 162/99; PULSE 144; TEMP 37.3; O2SAT 98; BMI 45.6
--- NOTE | 2024-11-07 18:40 | ED.URI1 ---
HPI - URI/Sore Throat General Chief Complaint: Upper Respiratory Infection Stated Complaint: Shortness of Breath Time Seen by Provider: 11/07/24 18:35 Source: patient Limitations: no limitations History of Present Illness HPI Narrative: 24 year old female presents to the ED for a sore throat. Onset was approx 2 weeks ago. It has gotten worse over the past few days. She completed a Z-natividad without improvement. She is currently taking Augmentin without improvement. She took 4 days of prednisone while taking the Z-natividad. Denies fever, chills, SOB. Reports a mild cough, sinus drainage. Denies chance of . Related Data Home Medications ?Medication ?Instructions ?Recorded ?Confirmed guanfacine 2 mg tablet 2 mg PO .qhs 11/12/23 11/07/24 topiramate 50 mg tablet 50 mg PO .qhs 11/12/23 11/07/24 Previous Rx's ?Medication ?Instructions ?Recorded jpmevarqgrhhoek-zollyieipldidrc-HQ 5 ml PO Q6H PRN cold symptoms #118 01/24/24 2 mg-30 mg-10 mg/5 mL oral syrup mL (Bromfed DM) prednisone 10 mg tablet See Rx Instructions .Route 11/07/24 .COMPLEX #30 tabs Allergies Allergy/AdvReac Type Severity Reaction Status Date / Time No Known Drug Allergies Allergy Verified 11/12/23 20:41 Review of Systems ROS Constitutional Denies: fever, chills or fatigue Ears, nose, mouth, and throat Reports: throat pain, throat swelling, difficulty swallowing, nasal discharge and post nasal drip; Denies: neck pain, ear pain or ear discharge Cardiovascular Denies: chest pain Respiratory Reports: cough; Denies: shortness of breath, wheezing or stridor Gastrointestinal Denies: nausea or vomiting Integumentary/Breast Denies: rash Neurological Denies: headache PFSH PFSH Social History Little interest or pleasure in doing things: not at all Feeling down, depressed, or hopeless: not at all Exam Constitutional Vital Signs, click to edit/add: Last Vital Signs Temp 99.2 F 11/07/24 18:30 Pulse 124 H 11/07/24 19:30 Resp 20 11/07/24 19:30 BP 155/75 H 11/07/24 19:30 Pulse Ox 97 11/07/24 19:30 O2 Del Method Room Air 11/07/24 18:30 Common normals: oriented x3 General appearance: cooperative HENMT Common normals: external ears normal, EACs normal, TMs normal bilaterally and moist oral mucous membranes Mouth: lip normal, tongue normal and muffled voice Throat: uvula midline, tonsils abnormal bilateral (2+ bilaterally) erythema and exudates and posterior oropharynx abnormal erythema and exudates Eye Common normals: conjunctivae normal and no scleral icterus Neck & C-Spine Common normals: supple and no meningeal signs General: trachea midline and lymphadenopathy Respiratory Common normals: normal respiratory effort and clear to auscultation bilaterally Effort & inspection: able to speak in complete sentences and symmetric chest movement Cardio Common normals: regular rhythm Rate: tachycardic Neuro Common normals: oriented x3 and moves all extremities Sensorium/orientation: awake and alert Course Vital Signs Vital signs: Vital Signs Temperature 99.2 F 11/07/24 18:30 Pulse Rate 144 H 11/07/24 18:30 Respiratory Rate 28 H 11/07/24 18:30 Blood Pressure 162/99 H 11/07/24 18:30 Pulse Oximetry 98 11/07/24 18:30 Oxygen Delivery Method Room Air 11/07/24 18:30 Temperature 99.2 F 11/07/24 18:30 Pulse Rate 124 H 11/07/24 19:30 Respiratory Rate 20 11/07/24 19:30 Blood Pressure 155/75 H 11/07/24 19:30 Pulse Oximetry 97 11/07/24 19:30 Oxygen Delivery Method Room Air 11/07/24 18:30 MDM - URI/Sore Throat MDM Narrative Medical decision making narrative: Strep and mononucleosis were negative. WBC count was 13.6. CT scan showed significant tonsillitis. Admission to the hospital was discussed; the patient preferred to be discharged home. PT is speaking in full sentences, handling secretions well. She is currently on day 3 of a 10-day course of Augmentin. A prescription was provided for prednisone. Continue the Augmentin as directed. Follow up with pcp for a recheck, further evaluation and treatment. Return precautions were discussed. Medical Records Attestation: I reviewed the patient's medical records. Lab Data Attestation: I reviewed the patient's lab results. Labs: Lab Results 11/07/24 11/07/24 Range/Units 18:42 18:53 WBC 13.6 H (4.0-11.0) 10^3/uL RBC 5.80 H (4.20-5.40) 10^6/uL Hgb 15.0 (12.0-16.0) g/dL Hct 45.0 (36.0-48.0) % MCV 77.6 L (81.0-99.0) fL MCH 25.9 L (26.7-34.0) pg MCHC 33.3 (29.9-35.2) g/dL RDW 14.4 (11.0-15.0) % Plt Count 262 (150-450) 10^3/uL MPV 9.9 (9.5-13.5) fL Seg Neuts % (Manual) 56.0 (43.0-75.0) Lymphocytes % (Manual) 20.0 L (20.5-60.0) % Atypical Lymphs % (Man) 13.0 % Monocytes % (Manual) 11.0 (1.7-12.0) % Eosinophils % (Manual) 0.0 L (0.9-7.0) % Basophils % (Manual) 0.0 L (0.2-2.0) % Neutrophils # (Manual) 7.61 H (1.4-6.5) 10^3/uL Lymphocytes # (Manual) 2.72 (1.20-3.80) 10^3/uL Abs Atypical Lymphs Man 1.76 Monocytes # (Manual) 1.49 H (0.30-0.80) 10^3/uL Eosinophils # (Manual) 0.00 (0.00-0.70) 10^3/uL Basophils # (Manual) 0.00 (0.00-0.10) 10^3/uL Anisocytosis 1+ Microcytosis 1+ Sodium 139 (136-145) mmol/L Potassium 3.6 (3.5-5.1) mmol/L Chloride 103 (98-107) mmol/L Carbon Dioxide 22.6 (21.0-32.0) mmol/L Anion Gap 17.0 BUN 10.0 (7.0-18.0) mg/dL Creatinine 0.79 (0.55-1.02) mg/dL Est GFR ( Amer) >60 (>=60 mL/min/1.73m^2) Est GFR (Non-Af Amer) >60 (>=60 mL/min/1.73m^2) BUN/Creatinine Ratio 12.7 Glucose 121 H (74-106) mg/dL Calcium 9.1 (8.5-10.1) mg/dL Serum HCG, Qual Negative (NEGATIVE) Monoscreen Negative (NEGATIVE) Streptococcus Screen Negative Imaging Data CT soft tissue neck: Attestation: I have reviewed the pertinent imaging results. Radiologist's impression: 1. Significant tonsillitis and pharyngitis. 2. Effacement of the nasopharyngeal airway. 3. Acute on chronic sinusitis wiht air-fluid level in the right maxillary sinus. 4. Normal epiglottis. 5. No parapharyngeal abscess formation. 6. Normal thyroid gland. 7. Clear mastoid air cells. 8. Mild enlargement right and left lateral cervical and submandibular nodes. Discharge Plan Discharge Chief Complaint: Upper Respiratory Infection Clinical Impression: Acute tonsillitis Patient Disposition: Home, Self-Care Time of Disposition Decision: 21:46 Condition: Good Mode of Transportation: Private Vehicle Prescriptions / Home Meds: New prednisone 10 mg tablet See Rx Instructions .ROUTE .COMPLEX Qty: 30 0RF Rx Instructions: Take 5 tablets on days 1-2, 4 tabs on days 3-4, 3 tabs on days 5-6, 2 tabs on days 7-8, 1 tab on days 9-10. No Action flpfoawirowpsfr-xffxlphgj-UA [Bromfed DM] 2-30-10 mg/5 mL syrup 5 ml PO Q6H PRN (Reason: cold symptoms) Qty: 118 0RF topiramate 50 mg tablet 50 mg PO .qhs guanfacine 2 mg tablet 2 mg PO .qhs Print Language: Georgian Instructions: Tonsillitis (ED) Additional Instructions: Return to the ER for worsening symptoms. Continue the Augmentin as directed. Referrals: [facility] [Primary Care Provider, Unknown] - 1 week
[2024-11-07] MEDS: 0.9 % SODIUM CHLORIDE 1,000 ML 999 ML IV (18:49)
[2024-11-07] MEDS: DEXAMETHASONE SOD PHOS 10 MG/ML VIAL IV (18:51)
[2024-11-07 18:52] LABS: Mean Corpuscular HGB Conc 33.3 g/dL (29.9-35.2); Mean Corpuscular Hemoglobin 25.9 pg (26.7-34.0); Mean Corpuscular Volume 77.6 fL (81.0-99.0); Mean Platelet Volume 9.9 fL (9.5-13.5); Platelet Count 262 10^3/uL (150-450); Red Cell Distribution Width 14.4 % (11.0-15.0); White Blood Count 13.6 10^3/uL (4.0-11.0)
[2024-11-07 19:01] LABS: BUN Creatinine Ratio 12.7; Calcium 9.1 mg/dL (8.5-10.1); Carbon Dioxide 22.6 mmol/L (21.0-32.0); Chloride 103 mmol/L (98-107); Estimated GFR (African America >60 (>=60 mL/min/1.73m^2); Estimated GFR (Non-African Ame >60 (>=60 mL/min/1.73m^2); Glucose 121 mg/dL (74-106); Potassium 3.6 mmol/L (3.5-5.1); Sodium 139 mmol/L (136-145)
[2024-11-07 19:02] LABS: HCG Qualitative NEGATIVE (NEGATIVE); Internal Control Within Normal Limits; Mono Screen NEGATIVE (NEGATIVE)
[2024-11-07 19:04] LABS: Internal Control Within Normal Limits; Strep A Antigen Screen Negative
[2024-11-07 19:13] LABS: Anisocytosis 1+; Atypical Lymphocytes Abs Man 1.76; Lymphocytes Absolute Manual 2.72 10^3/uL (1.20-3.80); Microcytosis 1+; Monocytes Absolute Manual 1.49 10^3/uL (0.30-0.80); Segmented Neut Absolute Manual 7.61 10^3/uL (1.4-6.5)
[2024-11-07 19:30] VITALS: BP 155/75; PULSE 124; O2SAT 97
[2024-11-07 22:01] VITALS: PULSE 128; O2SAT 98
== END 2024-11-07 22:02 | disposition home or self-care (01) ==
PROVIDERS: Nurse Practitioner Family; Emergency Provider Emergency Medicine
DX: J03.90 Acute tonsillitis, unspecified (principal)
CPT/HCPCS: 36415; 70491; 80048; 84703; 85007; 85027; 86308; 87070; 87880; 96374; 99285; J1100; Q9967